=== PATIENT | male | born 1955 | race Caucasian/White ===

== ENCOUNTER → 2016-08-28 | Outpatient (CLI) | payer MEDICAID | LOC: FIMAGING 09:09 | PROVIDERS: ATTEND Internal Medicine Rheumatology | DX: Z13.820 Encounter for screening for osteoporosis (principal); Z79.52 Long term (current) use of systemic steroids ==

== ENCOUNTER 2017-03-06 19:56 | Emergency (ER) | payer MEDICAID ==
[2017-03-06 20:05] VITALS: O2SAT 91
[2017-03-06] MEDS ORDERED: IBUPROFEN 200 MG TAB PO ONE (20:47)
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
[2017-03-06 21:50] VITALS: BP 146/100; PULSE 68; RESP 16; TEMP 98.1
== END 2017-03-06 21:49 | disposition home or self-care (01) ==
DX: S63.502A Unspecified sprain of left wrist, initial encounter (principal); V18.0XXA Pedal cycle driver injured in noncollision transport accident in nontraffic accident, initial encounter; Y99.8 Other external cause status; Y93.55 Activity, bike riding; F17.200 Nicotine dependence, unspecified, uncomplicated; Z79.01 Long term (current) use of anticoagulants
CPT/HCPCS: L3807

== ENCOUNTER → 2017-09-11 | Outpatient (CLI) | payer MEDICAID | LOC: FIMAGING 08:40 | PROVIDERS: ATTEND Family Medicine | DX: J98.09 Other diseases of bronchus, not elsewhere classified (principal); J43.9 Emphysema, unspecified; I25.10 Atherosclerotic heart disease of native coronary artery without angina pectoris; F17.200 Nicotine dependence, unspecified, uncomplicated ==

== ENCOUNTER 2017-11-22 17:03 | Emergency (ER) | payer MEDICAID ==
--- NOTE | 2017-11-22 17:08 | EDPHY ---
H & P Time Seen by Provider: 11/22/17 17:08 HPI/ROS: CHIEF COMPLAINT: Weakness, fatigue HISTORY OF PRESENT ILLNESS: The patient has a history of atrial fibrillation and is chronically anticoagulated and presents to the ED with several days of weakness and fatigue. The patient denies fever, cough or congestion. The patient reports he has been compliant with his medications. The patient denies acute pain. The patient denies headache, numbness or weakness. He denies any drug or alcohol use. The patient denies significant medication changes. REVIEW OF SYSTEMS: A comprehensive 10 point review of systems is otherwise negative aside from elements mentioned in the history of present illness. Source: Patient - Medical/Surgical History Hx Asthma: Yes Hx Chronic Respiratory Disease: No Hx Diabetes: Yes Hx Cardiac Disease: Yes Hx Renal Disease: No Hx Cirrhosis: No Hx Alcoholism: No Hx HIV/AIDS: No Hx Splenectomy or Spleen Trauma: No Other PMH: PMH- BPH, HTN, HLD, DM, CHF. 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, R "plastic elbow", CHF, a-flutter - Social History Smoking Status: Current every day smoker - Physical Exam Exam: General Appearance: Alert, no distress Eyes: Pupils equal and round no pallor or injection ENT, Mouth: Mucous membranes moist Respiratory: There are no retractions, lungs are clear to auscultation Cardiovascular: Regular rate and rhythm Gastrointestinal: Abdomen is soft and nontender, no masses, bowel sounds normal Neurological: A&O, normal motor function, normal sensory exam, normal cranial nerves Skin: Warm and dry, no rashes Musculoskeletal: Neck is supple nontender Extremities: symmetrical, full range of motion Constitutional: Initial Vital Signs Temperature (C) 35.9 C L 11/22/17 17:09 Heart Rate 87 11/22/17 17:09 Respiratory Rate 18 11/22/17 17:09 Blood Pressure 178/101 H 11/22/17 17:09 O2 Sat (%) 92 11/22/17 17:09 O2 Delivery Mode Room Air Allergies/Adverse Reactions: No Known Allergies Allergy (Verified 10/11/15 08:39) Home Medications: Medication Instructions Recorded Albuterol Sulfate [PROVENTIL HFA] 1 - 2 puffs IH DAILY PRN 10/26/15 Furosemide [Lasix 40 MG (*)] 40 mg PO DAILY 10/26/15 metFORMIN HCL [Glucophage 500 mg 500 mg PO BID 10/26/15 (*)] Metoprolol Succinate Xr [Toprol Xl 100 mg PO DAILY #30 tab.sr 10/27/15 100 mg (*)] Spironolactone [Aldactone 25 MG 25 mg PO DAILY #0 tab 10/27/15 (*)] Lisinopril 20 mg PO DAILY 11/03/15 Oxycodone HCl/Acetaminophen 1 - 2 each PO Q4H PRN 11/03/15 [Oxycodone-Acetaminophen 10-325] Apixaban [Eliquis] 5 mg PO BID #60 tab 11/04/15 Atorvastatin Calcium 10 mg PO DAILY #30 tablet 11/04/15 Medical Decision Making - Diagnostics Imaging Results: Imaging Impressions Chest X-Ray 11/22/17 17:20 Impression: 1. Findings consistent with airways disease are noted, query emphysema. 2. See above report for additional findings. ED Course/Re-evaluation: The patient presents to the ED for evaluation of several days of fatigue. The patient has no other specific symptoms. The patient does have a history of paroxysmal atrial fibrillation and is anticoagulated. The patient's EKG demonstrates a sinus rhythm. Review of his laboratory studies demonstrate no evidence of a metabolic abnormality, renal failure or critical anemia. Patient's chest x-ray demonstrates no evidence of acute disease in his troponin is normal. This point time I see no evidence of an obvious emergency condition requiring further stabilization. I do feel the patient can try to increase his fluid intake as he may have some element of dehydration contributing to his symptoms. The patient will be advised to follow up with his primary care provider and news broadcaster as scheduled. He is discharged home with customary aftercare instructions and return precautions. Differential Diagnosis: Differential diagnosis considered includes atrial fibrillation, anemia, dehydration, renal failure, congestive heart failure, metabolic abnormality - Data Points Laboratory Results: Laboratory Results 11/22/17 17:15 11/22/17 17:15 11/22/17 11/22/17 11/22/17 17:15 17:15 17:15 WBC 8.49 10^3/uL 10^3/uL (3.80-9.50) RBC 5.27 10^6/uL 10^6/uL (4.40-6.38) Hgb 16.1 g/dL g/dL (13.7-17.5) Hct 47.2 % % (40.0-51.0) MCV 89.6 fL fL (81.5-99.8) MCH 30.6 pg pg (27.9-34.1) MCHC 34.1 g/dL g/dL (32.4-36.7) RDW 13.8 % % (11.5-15.2) Plt Count 225 10^3/uL 10^3/uL (150-400) MPV 10.4 fL fL (8.7-11.7) Neut % (Auto) 64.8 % % (39.3-74.2) Lymph % (Auto) 27.4 % % (15.0-45.0) Alfalfa % (Auto) 6.9 % % (4.5-13.0) Eos % (Auto) 0.5 % L % (0.6-7.6) Baso % (Auto) 0.2 % L % (0.3-1.7) Nucleat RBC Rel Count 0.0 % % (0.0-0.2) Absolute Neuts (auto) 5.49 10^3/uL 10^3/uL (1.70-6.50) Absolute Lymphs (auto) 2.33 10^3/uL 10^3/uL (1.00-3.00) Absolute Monos (auto) 0.59 10^3/uL 10^3/uL (0.30-0.80) Absolute Eos (auto) 0.04 10^3/uL 10^3/uL (0.03-0.40) Absolute Basos (auto) 0.02 10^3/uL 10^3/uL (0.02-0.10) Absolute Nucleated RBC 0.00 10^3/uL 10^3/uL (0-0.01) Immature Gran % 0.2 % % (0.0-1.1) Immature Gran # 0.02 10^3/uL 10^3/uL (0.00-0.10) PT 25.0 SEC H SEC (12.0-15.0) INR 2.26 H (0.83-1.16) Sodium 143 mEq/L mEq/L (135-145) Potassium 3.8 mEq/L mEq/L (3.3-5.0) Chloride 107 mEq/L mEq/L (97-110) Carbon Dioxide 25 mEq/l mEq/l (22-31) Anion Gap 11 mEq/L mEq/L (8-16) BUN 11 mg/dL mg/dL (7-23) Creatinine 0.9 mg/dL mg/dL (0.7-1.3) Estimated GFR > 60 Glucose 101 mg/dL H mg/dL (70-100) Calcium 9.3 mg/dL mg/dL (8.5-10.4) Troponin I < 0.012 ng/mL ng/mL (0.000-0.034) NT-Pro-B Natriuret Pep 131 pg/mL H pg/mL (0-125) Departure - Departure Disposition: Home, Routine, Self-Care Clinical Impression: Fatigue Condition: Good Instructions: Fatigue (ED) Additional Instructions: 1. The testing done in the emergency department today demonstrates no significant abnormality. 2. Please return to the ED for markedly worsening symptoms, acute pain or other concerns. 3. Please follow up with your primary care provider and news broadcaster as scheduled. Referrals: Obi Plummer DO [Primary Care Provider] - As per Instructions
--- NOTE | 2017-11-22 17:14 | CPEKG ---
Heart Rate: 86 RR Interval: 698 P-R Interval: 160 QRSD Interval: 86 QT Interval: 368 QTC Interval: 440 P [place]: 71 QRS [place]: 34 T Wave [place]: 59 EKG Severity - OTHERWISE NORMAL ECG - EKG Impression: SINUS RHYTHM Electronically Signed By: Dale Briones 22-Nov-2017 18:28:27
[2017-11-22 17:28] LABS: PLATELET COUNT 225 10^3/uL (150-400)
[2017-11-22 18:00] LABS: INR 2.26 (0.83-1.16)
[2017-11-22 18:10] VITALS: BP 133/86
== END 2017-11-22 18:43 | disposition home or self-care (01) ==
DX: R53.83 Other fatigue (principal); E11.9 Type 2 diabetes mellitus without complications; J45.909 Unspecified asthma, uncomplicated; I11.0 Hypertensive heart disease with heart failure; I50.9 Heart failure, unspecified; F17.200 Nicotine dependence, unspecified, uncomplicated; Z79.01 Long term (current) use of anticoagulants; Z79.84 Long term (current) use of oral hypoglycemic drugs

== ENCOUNTER → 2018-08-16 | Outpatient (CLI) | payer MEDICAID | LOC: FIMAGING 14:52 | PROVIDERS: ATTEND Family Medicine | DX: Z12.2 Encounter for screening for malignant neoplasm of respiratory organs (principal) ==